=== PATIENT | male | born 1945 | race Caucasian/White ===

== ENCOUNTER 2016-06-21 05:58 | Day surgery (SDC) | payer MEDICARE, OTHER ==
[~2016-06-21 05:58] MED LIST: L-LYSINE500 M3 PO; MULTIVITAMIN; PRINIVIL20 M1 PO; TENORMIN50 M1 PO; TYLENOL EXTRA500 M1 PO; ULTRAM50 M1 PO; VITAMIN B12-FO1 EAC1 PO; VITAMIN D3 COM1 EACH PO; ZYLOPRIM100 M1 PO
[2016-06-21 07:38] LABS: BASO ABSOLUTE COUNT 0.1 tho/cmm (0.0-0.2); EOS % 4.9 % (0-7); EOSINOPHIL ABSOLUTE COUNT 0.3 tho/cmm (0.0-0.7); HCT-HEMATOCRIT 39.1 % (36.0-53.5); HGB-HEMOGLOBIN 13.2 gm/dl (13.5-17.0); IMMATURE GRANULOCYTES ABSOLUTE 0.02 tho/cmm (0-0.03); IMMATURE GRANULOCYTES PERCENT 0.3 % (0-0.3); LYMPH % 33.9 % (20-45); LYMPH ABSOLUTE COUNT 2.1 tho/cmm (0.8-4.5); MCH (MEAN CORPUSCULAR HGB) 30.9 pg (28.0-32.0); MCHC MEAN CORPUSCULAR HGB CONC 33.8 % (32.0-36.0); MCV (MEAN CELL VOLUME) 91.6 fl (82.0-96.0); MEAN PLATELET VOLUME 13.1 cmc (9.4-12.4); MONO % 8.9 % (0-12); MONOCYTE ABSOLUTE COUNT 0.5 tho/cmm (0.0-1.2); NEUTROPHIL ABSOLUTE COUNT 3.1 tho/cmm (1.6-8.0); NEUTROPHIL-AUTOMATED 3.1 tho/cmm (1.6-8.0); PLATELET COUNT 135 tho/cmm (150-450); RED BLOOD COUNT 4.27 mil/cmm (4.40-5.70); RED CELL DISTRIBUTION WIDTH 14.3 % (12.4-16.4); WHITE BLOOD COUNT 6.1 tho/cmm (4.0-10.0)
[2016-06-21 08:05] LABS: INR 1.1 INR (0.9-1.1); PROTHROMBIN TIME 12.7 SECONDS (9.0-13.6)
== END 2016-06-21 11:00 ==
LOC: CTSCAN 05:58 → SHSC 05:59
PROVIDERS: Internal Medicine Hematology & Oncology; Radiology Diagnostic Radiology
PROC: 07DR3ZX Extraction of Iliac Bone Marrow, Percutaneous Approach, Diagnostic (ICD-10-PCS; principal; 2016-06-21)
PROC: 0WBH3ZX Excision of Retroperitoneum, Percutaneous Approach, Diagnostic (ICD-10-PCS; 2016-06-21)
DX: C90.00 Multiple myeloma not having achieved remission (principal); M79.661 Pain in right lower leg
CPT/HCPCS: C1830; G0364; J2250; J3010